=== PATIENT | female | born 1930 | race Caucasian/White ===

== ENCOUNTER 2016-10-25 11:24 | Inpatient (IN) | payer MEDICARE, MEDICAID ==
[~2016-10-25] VITALS: Ht 165.1 cm; Wt 82.0 kg
[~2016-10-25 11:24] MED LIST: APIX2.5T PEG; Atorvastatin Calcium PO; DON5T GT; FURO40TA GT; GABA-494 GT; GLYC1SOL GT; LOR05T GT; MET50T PEG; NOR7.5T GT; OMEP20CA5 PO; ONDA4TAB5 PO; POTA10SO11 GT
[2016-10-25 12:15] VITALS: BP 115/42
[2016-10-25] MEDS ORDERED: SODIUM CHLORIDE 0.9% 1,000 ML IV ONE (13:23)
[2016-10-25 14:36] LABS: Basophils # (auto) 0.1 uL; Basophils % (auto) 0.5 % (0.0-2.0); DEFINITIVE VIEW TRANSMISSION; Eosinophils # (auto) 0 uL; Hematocrit 38.6 % (36.0-46.0); Hemoglobin 12.3 g/dL (12.2-16.2); Lymphocytes # (auto) 0.3 uL; Lymphocytes % (auto) 1.6 % (10.0-50.0); Mean Corpuscular Hemoglobin 26.8 pg (28.0-32.0); Mean Corpuscular Hgb Conc. 31.8 g/dL (32.0-36.0); Mean Corpuscular Volume 84.3 fL (80.0-100.0); Mean Platelet Volume 10.9 fL (7.4-10.4); Monocytes # (auto) 1.1 uL; Monocytes % (auto) 6.2 % (0.0-12.0); Neutrophils # (auto) 15.7 uL; Neutrophils % (auto) 91.7 % (37.0-80.0); Platelet Count (auto) 251 10^3/uL (140-450); Red Cell Distribution Width 17.2 % (11.6-16.0); SUSPECT VIEW TRANSMISSION; White Blood Cell 17.1 10^3/uL (4.4-10.8)
[2016-10-25 14:55] VITALS: BP 104/48
[2016-10-25 19:45] LABS: Urine Bilirubin Negative (Negative); Urine Blood Negative /uL (Negative); Urine Color Yellow (Yellow); Urine Glucose Normal (Normal); Urine Ketone Negative (Negative); Urine Mucus FEW (None Seen); Urine Nitrite Negative (Negative); Urine RBC 2 /hpf (0 - 4); Urine Squamous Epithelial Cell FEW /hpf (<5); Urine WBC Clumps PRESENT /hpf (None Seen)
[2016-10-25 20:00] VITALS: BP 86/54
[2016-10-25 22:00] VITALS: BP 107/66
[2016-10-25] MEDS ORDERED: ONDANSETRON HCL 4 MG/2 ML VIAL IV PRN (22:15)
[2016-10-25] MEDS ORDERED: LEVOFLOXACIN 750MG 150 ML IV ONE (22:15)
[2016-10-25] MEDS ORDERED: MORPHINE SULF INJ 2 MG/ML SYRINGE 1ML IV PRN (22:15)
[2016-10-25] MEDS ORDERED: PPN PER PHARMACY 0 ML IV SCH (22:15)
[2016-10-25] MEDS ORDERED: ACETAMINOPHEN 325 MG TAB PO PRN (22:15)
[2016-10-25] MEDS ORDERED: NITROGLYCERIN 0.4 MG SL TAB SL PRN (22:15)
[2016-10-25 23:21] LABS: Potassium 5.3 mmol/L (3.5-5.1)
[2016-10-25 23:22] LABS: BUN/Creatinine Ratio 34.9; Bilirubin, Total 0.5 mg/dL (0.2-1.0); Calcium 8.5 mg/dL (8.5-10.1)
[2016-10-25 23:25] LABS: Albumin 2.1 g/dL (3.4-5.0); Magnesium 2.6 mg/dL (1.6-2.6); Total Protein 6.7 g/dL (6.4-8.2)
[2016-10-26] VITALS (10 sets, daily range): BP systolic 98–149; BP diastolic 42–88
[2016-10-26 06:12] LABS: Basophils # (auto) 0.1 uL; Basophils % (auto) 0.7 % (0.0-2.0); DEFINITIVE VIEW TRANSMISSION; Eosinophils # (auto) 0 uL; Eosinophils % (auto) 0.2 % (0.0-7.0); Hematocrit 35.7 % (36.0-46.0); Hemoglobin 11.3 g/dL (12.2-16.2); Lymphocytes # (auto) 0.6 uL; Mean Corpuscular Hemoglobin 26.7 pg (28.0-32.0); Mean Corpuscular Hgb Conc. 31.6 g/dL (32.0-36.0); Mean Corpuscular Volume 84.6 fL (80.0-100.0); Mean Platelet Volume 9.6 fL (7.4-10.4); Monocytes # (auto) 1.6 uL; Monocytes % (auto) 10.3 % (0.0-12.0); Neutrophils # (auto) 13.1 uL; Neutrophils % (auto) 84.8 % (37.0-80.0); Platelet Count (auto) 229 10^3/uL (140-450); White Blood Cell 15.5 10^3/uL (4.4-10.8)
[2016-10-26 06:34] LABS: Albumin 2.1 g/dL (3.4-5.0); BUN/Creatinine Ratio 39.8; Calcium 8.5 mg/dL (8.5-10.1); Potassium 4.8 mmol/L (3.5-5.1)
[2016-10-26 06:36] LABS: Bilirubin, Total 0.7 mg/dL (0.2-1.0); Total Protein 6.7 g/dL (6.4-8.2)
[2016-10-26] MEDS ORDERED: METOPROLOL TARTRATE 1MG/1ML-5ML VIAL IV ONE (07:15)
[2016-10-26 07:22] LABS: Phosphorus 2.2 mg/dL (2.5-4.90)
[2016-10-26 07:25] LABS: Magnesium 2.6 mg/dL (1.6-2.6)
[2016-10-26] MEDS ORDERED: ENOXAPARIN SOD 40 MG/0.4 ML SYRINGE SC SCH (10:00)
[2016-10-26] MEDS ORDERED: POTASSIUM CHL 20 Meq TABLET PO SCH (10:00)
[2016-10-26] MEDS ORDERED: APIXABAN 2.5 MG TAB GT SCH (10:00)
[2016-10-26] MEDS ORDERED: FUROSEMIDE 40 MG TAB PO SCH (10:00)
[2016-10-26] MEDS ORDERED: SODIUM CHLORIDE 0.9% 500 ML IV ONE (10:45)
[2016-10-26] MEDS ORDERED: AMIODARONE HCL 150 MG in D5W 5% 100 ML IV ONE (10:45)
[2016-10-26] MEDS ORDERED: VANCOMYCIN PER PHARMACY 0 MG IV SCH (10:45)
[2016-10-26] MEDS ORDERED: AMIODARONE HCL 900 MG in DEXTROSE 500 ML IV SCH (10:52)
[2016-10-26] MEDS: PANTOPRAZOLE SODIUM 40 MG/10 ML VIAL IV SCH (10:57)
[2016-10-26] MEDS: METOPROLOL TARTRATE 50 MG TAB PO SCH ×2 (11:09→22:32)
[2016-10-26] MEDS: APIXABAN 5 MG TAB GT SCH ×2 (11:09→22:30)
[2016-10-26] MEDS ORDERED: LORazepam 2MG/ML-1ML VIAL ONE (11:17)
[2016-10-26] MEDS ORDERED: LORazepam 2MG/ML-1ML VIAL IM ONE ×2 (11:25→11:30)
[2016-10-26] MEDS ORDERED: LIDOCAINE 1% HCL (LOCAL ANESTH.) INJ 20ML MDV ONE (11:40)
[2016-10-26] MEDS ORDERED: VANCOMYCIN 1,250 MG in D5W 5% 250 ML IV SCH (12:00)
[2016-10-26 12:43] LABS: Partial Thromboplastin Time 24.6 sec (22.64-33.71)
[2016-10-26 12:47] LABS: INR 1.78 (0.9-1.15); Prothrombin Time 19.2 sec (9.37-12.3)
[2016-10-26] MEDS: FREE WATER GT SCH ×3 (14:00→22:00)
[2016-10-26] MEDS: SODIUM CHLORIDE 0.9% 1,000 ML IV SCH ×2 (14:00→20:17)
[2016-10-26] MEDS: AMIODARONE HCL 900 MG in DEXTROSE 500 ML IV SCH (16:52)
[2016-10-26] MEDS: IPRATROPIUM BROM 0.5 MG/2.5ML INH SOL NEB SCH ×2 (18:29→22:45)
[2016-10-26] MEDS: ALBUTEROL SULF 2.5 MG/0.5ML(0.5%) NEB SOLN NEB SCH ×2 (18:30→22:45)
[2016-10-26] MEDS ORDERED: POLY33504 GT (18:56)
[2016-10-26] MEDS ORDERED: SIME40DR15 PO (18:59)
[2016-10-26] MEDS: DONEPEZIL HYDROCHLORIDE 5 MG TAB PO SCH (22:30)
[2016-10-26] MEDS: ATORVASTATIN 20 MG TAB PO SCH (22:30)
[2016-10-26] MEDS: HYDROcodone-ACET 5/325MG TAB PO PRN (22:32)
[2016-10-26] MEDS: LEVOFLOXACIN 500MG 100 ML IV SCH (22:33)
[2016-10-27] VITALS (13 sets, daily range): BP systolic 83–150; BP diastolic 16–107
[2016-10-27] MEDS: FREE WATER GT SCH ×6 (02:00→22:06)
[2016-10-27] MEDS: SODIUM CHLORIDE 0.9% 1,000 ML IV SCH ×3 (03:45→20:54)
[2016-10-27] MEDS: Nutren Pulmonary 1 Liter GT SCH (05:00)
[2016-10-27 05:01] LABS: Basophils # (auto) 0 uL; Basophils % (auto) 0.1 % (0.0-2.0); DEFINITIVE VIEW TRANSMISSION; Eosinophils # (auto) 0.1 uL; Eosinophils % (auto) 0.7 % (0.0-7.0); Hematocrit 32.2 % (36.0-46.0); Hemoglobin 10.1 g/dL (12.2-16.2); Lymphocytes % (auto) 7.9 % (10.0-50.0); Mean Corpuscular Hemoglobin 26.6 pg (28.0-32.0); Mean Corpuscular Hgb Conc. 31.4 g/dL (32.0-36.0); Mean Corpuscular Volume 84.9 fL (80.0-100.0); Mean Platelet Volume 9.3 fL (7.4-10.4); Monocytes # (auto) 1.6 uL; Monocytes % (auto) 12.5 % (0.0-12.0); Neutrophils # (auto) 9.9 uL; Neutrophils % (auto) 78.8 % (37.0-80.0); Platelet Count (auto) 222 10^3/uL (140-450); Red Cell Distribution Width 16.5 % (11.6-16.0); White Blood Cell 12.5 10^3/uL (4.4-10.8)
[2016-10-27 05:26] LABS: Albumin 1.8 g/dL (3.4-5.0); BUN/Creatinine Ratio 39.3; Bilirubin, Total 0.8 mg/dL (0.2-1.0); Potassium 3.8 mmol/L (3.5-5.1); Total Protein 6.1 g/dL (6.4-8.2)
[2016-10-27] MEDS: IPRATROPIUM BROM 0.5 MG/2.5ML INH SOL NEB SCH ×5 (06:18→22:11)
[2016-10-27] MEDS: ALBUTEROL SULF 2.5 MG/0.5ML(0.5%) NEB SOLN NEB SCH ×5 (06:19→22:11)
[2016-10-27] MEDS: METOPROLOL TARTRATE 50 MG TAB PO SCH ×2 (09:22→22:05)
[2016-10-27] MEDS: PANTOPRAZOLE SODIUM 40 MG/10 ML VIAL IV SCH (09:43)
[2016-10-27] MEDS: APIXABAN 5 MG TAB GT SCH ×2 (09:43→22:03)
[2016-10-27] MEDS: AMIODARONE HCL 900 MG in DEXTROSE 500 ML IV SCH (12:04)
[2016-10-27] MEDS: HYDROcodone-ACET 5/325MG TAB PO PRN (21:07)
[2016-10-27] MEDS ORDERED: LEVOFLOXACIN 750MG 150 ML IV SCH (22:00)
[2016-10-27] MEDS: DONEPEZIL HYDROCHLORIDE 5 MG TAB PO SCH (22:03)
[2016-10-27] MEDS: ATORVASTATIN 20 MG TAB PO SCH (22:03)
[2016-10-27] MEDS: LEVOFLOXACIN 500MG 100 ML IV SCH (23:00)
[2016-10-28] VITALS (7 sets, daily range): BP systolic 80–154; BP diastolic 50–99
[2016-10-28] MEDS: FREE WATER GT SCH ×5 (02:00→22:10)
[2016-10-28] MEDS: ALBUTEROL SULF 2.5 MG/0.5ML(0.5%) NEB SOLN NEB SCH ×6 (02:16→22:00)
[2016-10-28] MEDS: IPRATROPIUM BROM 0.5 MG/2.5ML INH SOL NEB SCH ×6 (02:16→22:00)
[2016-10-28] MEDS: SODIUM CHLORIDE 0.9% 1,000 ML IV SCH ×3 (03:45→21:19)
[2016-10-28] MEDS ORDERED: IPRATROPIUM BROM 0.5 MG/2.5ML INH SOL NEB ONE (09:09)
[2016-10-28] MEDS: METOPROLOL TARTRATE 50 MG TAB PO SCH ×2 (10:00→22:11)
[2016-10-28] MEDS: APIXABAN 5 MG TAB GT SCH ×2 (10:34→22:02)
[2016-10-28] MEDS: PANTOPRAZOLE SODIUM 40 MG/10 ML VIAL IV SCH (10:34)
[2016-10-28] MEDS ORDERED: SODIUM CHLORIDE 0.9% 500 ML IV ONE (10:45)
[2016-10-28] MEDS ORDERED: AMIODARONE HCL 200 MG TAB PEG ONE (10:45)
[2016-10-28] MEDS ORDERED: LACTULOSE 20Gm/30ML SOLN PEG ONE (10:45)
[2016-10-28] MEDS: ALBUMIN 25% 100 ML IV SCH ×2 (11:00→12:00)
[2016-10-28] MEDS ORDERED: cefTAZidime 1 GM in D5W 5% 50 ML IV SCH (22:00)
[2016-10-28] MEDS: AMIODARONE HCL 200 MG TAB PEG SCH (22:09)
[2016-10-28] MEDS: DONEPEZIL HYDROCHLORIDE 5 MG TAB PO SCH (22:09)
[2016-10-28] MEDS: ATORVASTATIN 20 MG TAB PO SCH (22:11)
[2016-10-28] MEDS: MEROPENEM 1GM IVPB 100 ML IV SCH (23:10)
[2016-10-29] VITALS: BP 118/81
[2016-10-29] MEDS: ALBUTEROL SULF 2.5 MG/0.5ML(0.5%) NEB SOLN NEB SCH ×6 (02:28→22:13)
[2016-10-29] MEDS: IPRATROPIUM BROM 0.5 MG/2.5ML INH SOL NEB SCH ×6 (02:28→22:13)
[2016-10-29 04:00] VITALS: BP 101/50
[2016-10-29 04:15] VITALS: BP 101/50
[2016-10-29] MEDS: FREE WATER GT SCH ×4 (04:42→22:00)
[2016-10-29 05:24] LABS: Basophils # (auto) 0 uL; Basophils % (auto) 0.3 % (0.0-2.0); DEFINITIVE VIEW TRANSMISSION; Eosinophils # (auto) 0.1 uL; Eosinophils % (auto) 0.6 % (0.0-7.0); Hematocrit 32.5 % (36.0-46.0); Hemoglobin 10.2 g/dL (12.2-16.2); Lymphocytes # (auto) 0.8 uL; Lymphocytes % (auto) 6.2 % (10.0-50.0); Mean Corpuscular Hemoglobin 26.4 pg (28.0-32.0); Mean Corpuscular Hgb Conc. 31.5 g/dL (32.0-36.0); Mean Corpuscular Volume 83.8 fL (80.0-100.0); Mean Platelet Volume 9.5 fL (7.4-10.4); Monocytes # (auto) 1.2 uL; Monocytes % (auto) 9.3 % (0.0-12.0); Neutrophils # (auto) 11.2 uL; Neutrophils % (auto) 83.6 % (37.0-80.0); Platelet Count (auto) 254 10^3/uL (140-450); Red Cell Distribution Width 17.3 % (11.6-16.0); White Blood Cell 13.4 10^3/uL (4.4-10.8)
[2016-10-29 05:43] LABS: BUN/Creatinine Ratio 32.8; Calcium 7.5 mg/dL (8.5-10.1); Potassium 3.7 mmol/L (3.5-5.1)
[2016-10-29] MEDS: SODIUM CHLORIDE 0.9% 1,000 ML IV SCH (06:14)
[2016-10-29 08:00] VITALS: BP 100/56
[2016-10-29] MEDS: MEROPENEM 1GM IVPB 100 ML IV SCH (09:51)
[2016-10-29] MEDS: APIXABAN 5 MG TAB GT SCH ×2 (09:51→22:38)
[2016-10-29] MEDS: PANTOPRAZOLE SODIUM 40 MG/10 ML VIAL IV SCH (09:51)
[2016-10-29] MEDS: AMIODARONE HCL 200 MG TAB PEG SCH ×2 (09:52→22:37)
[2016-10-29 12:00] VITALS: BP 147/85
[2016-10-29] MEDS ORDERED: LACTULOSE 20Gm/30ML SOLN PEG PRN (12:45)
[2016-10-29 13:25] LABS: Partial Thromboplastin Time 29.7 sec (22.64-33.71)
[2016-10-29 13:56] LABS: INR 1.22 (0.9-1.15); Prothrombin Time 13.2 sec (9.37-12.3)
[2016-10-29 16:00] VITALS: BP 136/85
[2016-10-29] MEDS: cefTAZidime 1 GM in D5W 5% 50 ML IV SCH (22:00)
[2016-10-29] MEDS: METOPROLOL TARTRATE 25 MG TAB PO SCH (22:00)
[2016-10-29] MEDS: ATORVASTATIN 20 MG TAB PO SCH (22:37)
[2016-10-29] MEDS: DONEPEZIL HYDROCHLORIDE 5 MG TAB PO SCH (22:38)
[2016-10-30] VITALS: BP 165/85
[2016-10-30] MEDS: HYDROcodone-ACET 5/325MG TAB PO PRN (01:26)
[2016-10-30] MEDS: IPRATROPIUM BROM 0.5 MG/2.5ML INH SOL NEB SCH ×6 (02:18→22:38)
[2016-10-30] MEDS: ALBUTEROL SULF 2.5 MG/0.5ML(0.5%) NEB SOLN NEB SCH ×6 (02:18→22:38)
[2016-10-30 04:00] VITALS: BP 130/77
[2016-10-30] MEDS: FREE WATER GT SCH ×4 (04:00→21:55)
[2016-10-30 05:10] LABS: Basophils # (auto) 0 uL; Basophils % (auto) 0.3 % (0.0-2.0); DEFINITIVE VIEW TRANSMISSION; Eosinophils # (auto) 0.3 uL; Eosinophils % (auto) 1.7 % (0.0-7.0); Hematocrit 32.8 % (36.0-46.0); Hemoglobin 10.4 g/dL (12.2-16.2); Lymphocytes # (auto) 0.8 uL; Mean Corpuscular Hemoglobin 26.6 pg (28.0-32.0); Mean Corpuscular Hgb Conc. 31.6 g/dL (32.0-36.0); Mean Corpuscular Volume 84.1 fL (80.0-100.0); Mean Platelet Volume 9.1 fL (7.4-10.4); Monocytes # (auto) 1.2 uL; Monocytes % (auto) 7.4 % (0.0-12.0); Neutrophils # (auto) 13.9 uL; Neutrophils % (auto) 85.6 % (37.0-80.0); Platelet Count (auto) 262 10^3/uL (140-450); Red Cell Distribution Width 17.3 % (11.6-16.0); White Blood Cell 16.3 10^3/uL (4.4-10.8)
[2016-10-30 05:18] LABS: Calcium 7.8 mg/dL (8.5-10.1); Potassium 3.5 mmol/L (3.5-5.1)
[2016-10-30 08:03] VITALS: BP 133/80
[2016-10-30] MEDS: APIXABAN 5 MG TAB GT SCH ×2 (10:06→21:53)
[2016-10-30] MEDS: METOPROLOL TARTRATE 25 MG TAB PO SCH ×2 (10:07→21:54)
[2016-10-30] MEDS: PANTOPRAZOLE SODIUM 40 MG/10 ML VIAL IV SCH (10:07)
[2016-10-30] MEDS: AMIODARONE HCL 200 MG TAB PEG SCH ×2 (10:07→21:55)
[2016-10-30] MEDS: cefTAZidime 1 GM in D5W 5% 50 ML IV SCH ×2 (10:07→21:53)
[2016-10-30] MEDS: MEMANTINE HCL 5 MG TAB PO SCH (10:07)
[2016-10-30] MEDS ORDERED: APIX5TAB GT (11:20)
[2016-10-30 12:00] VITALS: BP 142/88
[2016-10-30] MEDS ORDERED: GASTROGRAFIN 30 ML SOL ONE ×2 (15:53→16:17)
[2016-10-30 16:00] VITALS: BP 142/82
[2016-10-30] MEDS ORDERED: VANCOMYCIN PER PHARMACY 0 MG IV SCH (16:00)
[2016-10-30] MEDS: VANCOMYCIN 1GM/250ML D5W 250 ML IV SCH (17:07)
[2016-10-30 20:00] VITALS: BP 135/87
[2016-10-30] MEDS: DONEPEZIL HYDROCHLORIDE 5 MG TAB PO SCH (21:54)
[2016-10-30] MEDS: Nutren Pulmonary 1 Liter GT SCH (21:55)
[2016-10-30] MEDS: ATORVASTATIN 20 MG TAB PO SCH (21:55)
[2016-10-31] MEDS: HYDROcodone-ACET 5/325MG TAB PO PRN ×2 (00:34→21:53)
[2016-10-31] MEDS: IPRATROPIUM BROM 0.5 MG/2.5ML INH SOL NEB SCH ×6 (02:03→22:28)
[2016-10-31] MEDS: ALBUTEROL SULF 2.5 MG/0.5ML(0.5%) NEB SOLN NEB SCH ×6 (02:03→22:28)
[2016-10-31] MEDS: FREE WATER GT SCH ×4 (04:05→21:54)
[2016-10-31] MEDS: VANCOMYCIN 1GM/250ML D5W 250 ML IV SCH ×2 (04:38→16:47)
[2016-10-31 05:00] VITALS: BP 123/78
[2016-10-31 08:00] VITALS: BP 138/78
[2016-10-31 08:32] LABS: BUN/Creatinine Ratio 27.4; Calcium 8.1 mg/dL (8.5-10.1); Potassium 3.6 mmol/L (3.5-5.1)
[2016-10-31] MEDS: APIXABAN 5 MG TAB GT SCH ×2 (09:37→21:53)
[2016-10-31] MEDS: METOPROLOL TARTRATE 25 MG TAB PO SCH ×2 (09:47→13:12)
[2016-10-31] MEDS: PANTOPRAZOLE SODIUM 40 MG/10 ML VIAL IV SCH (13:08)
[2016-10-31] MEDS: AMIODARONE HCL 200 MG TAB PEG SCH ×2 (13:09→21:53)
[2016-10-31] MEDS: MEMANTINE HCL 5 MG TAB PO SCH (13:09)
[2016-10-31] MEDS: cefTAZidime 1 GM in D5W 5% 50 ML IV SCH ×2 (13:12→21:54)
[2016-10-31 15:24] LABS: Basophils # (auto) 0 uL; Basophils % (auto) 0.3 % (0.0-2.0); DEFINITIVE VIEW TRANSMISSION; Eosinophils # (auto) 0.3 uL; Hematocrit 36.1 % (36.0-46.0); Hemoglobin 11.3 g/dL (12.2-16.2); Mean Corpuscular Hemoglobin 26.5 pg (28.0-32.0); Mean Corpuscular Hgb Conc. 31.3 g/dL (32.0-36.0); Mean Corpuscular Volume 84.7 fL (80.0-100.0); Mean Platelet Volume 8.8 fL (7.4-10.4); Monocytes # (auto) 1.1 uL; Monocytes % (auto) 8.6 % (0.0-12.0); Neutrophils # (auto) 10.6 uL; Neutrophils % (auto) 81.1 % (37.0-80.0); Platelet Count (auto) 273 10^3/uL (140-450); Red Cell Distribution Width 17.4 % (11.6-16.0)
[2016-10-31 16:45] VITALS: BP 134/88
[2016-10-31 18:17] VITALS: BP 138/78
[2016-10-31] MEDS: ATORVASTATIN 20 MG TAB PO SCH (21:53)
[2016-10-31] MEDS: DONEPEZIL HYDROCHLORIDE 5 MG TAB PO SCH (21:53)
[2016-10-31 22:00] VITALS: BP 145/85
[2016-11-01] MEDS: ALBUTEROL SULF 2.5 MG/0.5ML(0.5%) NEB SOLN NEB SCH ×6 (02:14→22:08)
[2016-11-01] MEDS: IPRATROPIUM BROM 0.5 MG/2.5ML INH SOL NEB SCH ×6 (02:14→22:07)
[2016-11-01] MEDS: FREE WATER GT SCH ×4 (03:50→21:43)
[2016-11-01] MEDS: HYDROcodone-ACET 5/325MG TAB PO PRN ×4 (03:51→21:41)
[2016-11-01 05:00] VITALS: BP 156/88
[2016-11-01] MEDS: VANCOMYCIN 1GM/250ML D5W 250 ML IV SCH (05:45)
[2016-11-01] MEDS: Nutren Pulmonary 1 Liter GT SCH (05:57)
[2016-11-01 07:34] VITALS: BP 129/71
[2016-11-01 07:47] LABS: BUN/Creatinine Ratio 19.4; Calcium 8.3 mg/dL (8.5-10.1); Potassium 3.5 mmol/L (3.5-5.1)
[2016-11-01 07:50] LABS: Bilirubin, Total 0.5 mg/dL (0.2-1.0); Total Protein 5.8 g/dL (6.4-8.2)
[2016-11-01] MEDS: PANTOPRAZOLE SODIUM 40 MG/10 ML VIAL IV SCH (09:26)
[2016-11-01] MEDS: AMIODARONE HCL 200 MG TAB PEG SCH (09:27)
[2016-11-01] MEDS: MEMANTINE HCL 5 MG TAB PO SCH (09:28)
[2016-11-01] MEDS: METOPROLOL TARTRATE 25 MG TAB PO SCH ×2 (09:28→21:42)
[2016-11-01] MEDS: APIXABAN 5 MG TAB GT SCH ×2 (09:28→21:42)
[2016-11-01] MEDS: cefTAZidime 1 GM in D5W 5% 50 ML IV SCH ×2 (09:39→21:43)
[2016-11-01 12:14] VITALS: BP 129/74
[2016-11-01 16:14] VITALS: BP 113/68
[2016-11-01 20:00] VITALS: BP 135/72
[2016-11-01] MEDS: ATORVASTATIN 20 MG TAB PO SCH (21:41)
[2016-11-01] MEDS: DONEPEZIL HYDROCHLORIDE 5 MG TAB PO SCH (21:42)
[2016-11-01 22:00] VITALS: BP 135/72
[2016-11-02] VITALS (7 sets, daily range): BP systolic 107–134; BP diastolic 63–78
[2016-11-02] MEDS: IPRATROPIUM BROM 0.5 MG/2.5ML INH SOL NEB SCH ×6 (02:18→22:26)
[2016-11-02] MEDS: ALBUTEROL SULF 2.5 MG/0.5ML(0.5%) NEB SOLN NEB SCH ×6 (02:18→22:25)
[2016-11-02] MEDS: FREE WATER GT SCH ×4 (03:35→22:00)
[2016-11-02] MEDS: HYDROcodone-ACET 5/325MG TAB PO PRN ×2 (03:36→09:50)
[2016-11-02 06:39] LABS: Basophils # (auto) 0 uL; Basophils % (auto) 0.1 % (0.0-2.0); DEFINITIVE VIEW TRANSMISSION; Eosinophils # (auto) 0.3 uL; Eosinophils % (auto) 2.5 % (0.0-7.0); Hematocrit 27.8 % (36.0-46.0); Hemoglobin 10.6 g/dL (12.2-16.2); Lymphocytes # (auto) 1.5 uL; Lymphocytes % (auto) 12.6 % (10.0-50.0); Mean Corpuscular Hemoglobin 31.8 pg (28.0-32.0); Mean Corpuscular Volume 83.2 fL (80.0-100.0); Mean Platelet Volume 9.4 fL (7.4-10.4); Monocytes # (auto) 1.2 uL; Monocytes % (auto) 9.7 % (0.0-12.0); Neutrophils # (auto) 9.2 uL; Neutrophils % (auto) 75.1 % (37.0-80.0); Platelet Count (auto) 252 10^3/uL (140-450); Red Cell Distribution Width 17.4 % (11.6-16.0); SUSPECT VIEW TRANSMISSION; White Blood Cell 12.3 10^3/uL (4.4-10.8)
[2016-11-02 06:42] LABS: BUN/Creatinine Ratio 19.7; Calcium 8.1 mg/dL (8.5-10.1); Potassium 3.8 mmol/L (3.5-5.1)
[2016-11-02 06:48] LABS: Mean Corpuscular Hgb Conc. 38.2 g/dL (32.0-36.0)
[2016-11-02] MEDS: APIXABAN 5 MG TAB GT SCH ×2 (09:50→22:00)
[2016-11-02] MEDS: MEMANTINE HCL 5 MG TAB PO SCH (09:51)
[2016-11-02] MEDS: METOPROLOL TARTRATE 25 MG TAB PO SCH ×2 (09:51→22:00)
[2016-11-02] MEDS: PANTOPRAZOLE SODIUM 40 MG/10 ML VIAL IV SCH (09:53)
[2016-11-02] MEDS ORDERED: AMIODARONE HCL 200 MG TAB PEG SCH (10:00)
[2016-11-02] MEDS: cefTAZidime 1 GM in D5W 5% 50 ML IV SCH (11:38)
[2016-11-02] MEDS ORDERED: MORPHINE SULF INJ 2 MG/ML SYRINGE 1ML IV PRN (12:15)
[2016-11-02] MEDS ORDERED: HYDROmorphone HCL 2 MG/ML VL ONE (14:10)
[2016-11-02] MEDS ORDERED: HYDROmorphone HCL 2 MG/ML VL IV ONE (14:15)
[2016-11-02] MEDS ORDERED: GASTROGRAFIN 120 ML SOL ONE (15:10)
[2016-11-02] MEDS: MEROPENEM 1GM IVPB 100 ML IV SCH ×2 (16:59→22:18)
[2016-11-02] MEDS ORDERED: MEROPENEM 1GM IVPB 100 ML IV SCH (22:00)
[2016-11-02] MEDS: DONEPEZIL HYDROCHLORIDE 5 MG TAB PO SCH (22:00)
[2016-11-02] MEDS: ATORVASTATIN 20 MG TAB PO SCH (22:00)
[2016-11-02] MEDS ORDERED: MORPHINE SULF INJ 2 MG/ML SYRINGE 1ML IV ONE (22:45)
[2016-11-03] VITALS (7 sets, daily range): BP systolic 81–174; BP diastolic 47–92
[2016-11-03] MEDS: IPRATROPIUM BROM 0.5 MG/2.5ML INH SOL NEB SCH ×6 (02:12→22:05)
[2016-11-03] MEDS: ALBUTEROL SULF 2.5 MG/0.5ML(0.5%) NEB SOLN NEB SCH ×6 (02:12→22:06)
[2016-11-03] MEDS: FREE WATER GT SCH ×4 (04:00→21:37)
[2016-11-03] MEDS: MEROPENEM 1GM IVPB 100 ML IV SCH ×3 (05:55→21:37)
[2016-11-03] MEDS ORDERED: MORPHINE SULF INJ 2 MG/ML SYRINGE 1ML IV ONE (08:15)
[2016-11-03] MEDS: HYDROcodone-ACET 5/325MG TAB PO PRN ×4 (11:35→17:57)
[2016-11-03] MEDS: APIXABAN 5 MG TAB GT SCH ×2 (11:36→21:37)
[2016-11-03] MEDS: METOPROLOL TARTRATE 25 MG TAB PO SCH ×2 (11:37→22:21)
[2016-11-03] MEDS: PANTOPRAZOLE SODIUM 40 MG/10 ML VIAL IV SCH (11:39)
[2016-11-03] MEDS: MEMANTINE HCL 5 MG TAB PO SCH (11:39)
[2016-11-03] MEDS: DONEPEZIL HYDROCHLORIDE 5 MG TAB PO SCH (21:38)
[2016-11-03] MEDS: ATORVASTATIN 20 MG TAB PO SCH (21:38)
[2016-11-03] MEDS: Nutren Pulmonary 1 Liter GT SCH (22:00)
[2016-11-04] MEDS: IPRATROPIUM BROM 0.5 MG/2.5ML INH SOL NEB SCH ×6 (02:16→22:22)
[2016-11-04] MEDS: ALBUTEROL SULF 2.5 MG/0.5ML(0.5%) NEB SOLN NEB SCH ×6 (02:16→22:22)
[2016-11-04] MEDS: FREE WATER GT SCH ×4 (04:18→22:47)
[2016-11-04] MEDS: MEROPENEM 1GM IVPB 100 ML IV SCH ×3 (05:30→22:59)
[2016-11-04 05:31] VITALS: BP 132/80
[2016-11-04] MEDS ORDERED: LEVOFLOXACIN 250 MG TAB PEG ONE (09:45)
[2016-11-04] MEDS: PANTOPRAZOLE SODIUM 40 MG/10 ML VIAL IV SCH (10:00)
[2016-11-04] MEDS: MORPHINE SULF INJ 2 MG/ML SYRINGE 1ML IV PRN ×2 (10:00→16:18)
[2016-11-04] MEDS: METOPROLOL TARTRATE 25 MG TAB PO SCH (10:01)
[2016-11-04] MEDS: APIXABAN 5 MG TAB GT SCH ×2 (10:01→22:37)
[2016-11-04] MEDS: MEMANTINE HCL 5 MG TAB PO SCH (10:01)
[2016-11-04 10:59] VITALS: BP 131/53
[2016-11-04] MEDS: HYDROcodone-ACET 5/325MG TAB PO PRN ×2 (14:18→23:05)
[2016-11-04] MEDS ORDERED: LEVO750T64 PO (14:27)
[2016-11-04 17:00] VITALS: BP 145/76
[2016-11-04 22:04] VITALS: BP 150/102
[2016-11-04] MEDS: ATORVASTATIN 20 MG TAB PO SCH (22:37)
[2016-11-04] MEDS: DONEPEZIL HYDROCHLORIDE 5 MG TAB PO SCH (22:38)
[2016-11-04] MEDS: METOPROLOL TARTRATE 50 MG TAB PO SCH (22:39)
[2016-11-05] MEDS: MORPHINE SULF INJ 2 MG/ML SYRINGE 1ML IV PRN ×2 (04:48→09:35)
[2016-11-05] MEDS: FREE WATER GT SCH ×2 (04:49→09:47)
[2016-11-05 04:58] VITALS: BP 154/97
[2016-11-05] MEDS: MEROPENEM 1GM IVPB 100 ML IV SCH (05:57)
[2016-11-05] MEDS: ALBUTEROL SULF 2.5 MG/0.5ML(0.5%) NEB SOLN NEB SCH ×2 (05:57→10:11)
[2016-11-05] MEDS: IPRATROPIUM BROM 0.5 MG/2.5ML INH SOL NEB SCH ×2 (05:57→10:11)
[2016-11-05 08:00] VITALS: BP 134/77
[2016-11-05 08:44] VITALS: BP 134/77
[2016-11-05] MEDS: PANTOPRAZOLE SODIUM 40 MG/10 ML VIAL IV SCH (09:36)
[2016-11-05] MEDS: METOPROLOL TARTRATE 50 MG TAB PO SCH (09:36)
[2016-11-05] MEDS: APIXABAN 5 MG TAB GT SCH (09:36)
[2016-11-05] MEDS: MEMANTINE HCL 5 MG TAB PO SCH (09:37)
== END 2016-11-05 12:03 | disposition home health service (06) | DRG 870 ==
LOC: EDBD 11:24 → EDUNIT# 11:24 → ER 11:28 → DOU 11:29 → TELE 23:38 → DOU IN ICU 10-26 09:06 → TELE-EAST 10-30 23:40
PROVIDERS: ADMIT Nurse Practitioner; ATTEND Internal Medicine
PROC: 5A1955Z Respiratory Ventilation, Greater than 96 Consecutive Hours (ICD-10-PCS; principal; 2016-10-30)
PROC: 02H633Z Insertion of Infusion Device into Right Atrium, Percutaneous Approach (ICD-10-PCS; 2016-10-30)
PROC: 0BH17EZ Insertion of Endotracheal Airway into Trachea, Via Natural or Artificial Opening (ICD-10-PCS; 2016-10-30)
DX: A41.9 Sepsis, unspecified organism (principal); G93.41 Metabolic encephalopathy; R65.21 Severe sepsis with septic shock; J15.20 Pneumonia due to staphylococcus, unspecified; E43 Unspecified severe protein-calorie malnutrition; J96.20 Acute and chronic respiratory failure, unspecified whether with hypoxia or hypercapnia; N39.0 Urinary tract infection, site not specified; N17.9 Acute kidney failure, unspecified; J44.0 Chronic obstructive pulmonary disease with (acute) lower respiratory infection; J96.12 Chronic respiratory failure with hypercapnia; Z99.11 Dependence on respirator [ventilator] status; I10 Essential (primary) hypertension; E11.9 Type 2 diabetes mellitus without complications; R26.9 Unspecified abnormalities of gait and mobility; F02.80 Dementia in other diseases classified elsewhere, unspecified severity, without behavioral disturbance, psychotic disturbance, mood disturbance, and anxiety; G30.1 Alzheimer's disease with late onset; F01.50 Vascular dementia, unspecified severity, without behavioral disturbance, psychotic disturbance, mood disturbance, and anxiety; I48.2 Chronic atrial fibrillation; E86.0 Dehydration; E87.5 Hyperkalemia; J44.9 Chronic obstructive pulmonary disease, unspecified; Z88.0 Allergy status to penicillin; Z88.8 Allergy status to other drugs, medicaments and biological substances; Z82.5 Family history of asthma and other chronic lower respiratory diseases; Z93.0 Tracheostomy status; Z68.30 Body mass index [BMI] 30.0-30.9, adult; Z83.3 Family history of diabetes mellitus; Z87.891 Personal history of nicotine dependence
CPT/HCPCS: 36415; 36600; 51702; 70450; 71010; 74000; 74020; 80048; 80053; 80202; 81001; 82270; 82746; 82805; 82962; 83605; 83735; 84100; 84478; 85025; 85610; 85730; 87040; 87070; 87077; 87081; 87086; 87186; 87205; 93005; 94002; 94003; 94640; 94761; 95819; 96374; 96375; C9113; J1956; J2001; J2185; J7060

== ENCOUNTER 2016-11-06 00:53 | Emergency (ER) | payer MEDICARE, MEDICAID ==
[~2016-11-06] VITALS: Ht 152.4 cm; Wt 72.6 kg
[~2016-11-06 00:53] MED LIST changes: -APIX2.5T PEG; +APIX5TAB GT; +LEVO750T64 PO; +POLY33504 GT; +SIME40DR15 PO
[2016-11-06] MEDS ORDERED: SODIUM CHLORIDE 0.9% 1,000 ML IVB ONE (01:01)
[2016-11-06 01:27] LABS: Basophils # (auto) 0.1 uL; Basophils % (auto) 0.5 % (0.0-2.0); DEFINITIVE VIEW TRANSMISSION; Eosinophils # (auto) 0.2 uL; Eosinophils % (auto) 2.2 % (0.0-7.0); Hematocrit 41.5 % (36.0-46.0); Hemoglobin 12.6 g/dL (12.2-16.2); Lymphocytes # (auto) 1.6 uL; Lymphocytes % (auto) 14.1 % (10.0-50.0); Mean Corpuscular Hemoglobin 26.3 pg (28.0-32.0); Mean Corpuscular Hgb Conc. 30.3 g/dL (32.0-36.0); Mean Corpuscular Volume 86.9 fL (80.0-100.0); Monocytes % (auto) 9.5 % (0.0-12.0); Neutrophils # (auto) 8.1 uL; Neutrophils % (auto) 73.7 % (37.0-80.0); Platelet Count (auto) 176 10^3/uL (140-450); Red Cell Distribution Width 18.7 % (11.6-16.0)
[2016-11-06 01:30] LABS: Partial Thromboplastin Time 28.5 sec (22.64-33.71)
[2016-11-06 01:31] LABS: INR 1.23 (0.9-1.15); Prothrombin Time 13.3 sec (9.37-12.3)
[2016-11-06 01:36] LABS: Albumin 2.4 g/dL (3.4-5.0); BUN/Creatinine Ratio 13.5; Calcium 8.2 mg/dL (8.5-10.1); Magnesium 2.2 mg/dL (1.6-2.6); Potassium 4.8 mmol/L (3.5-5.1)
[2016-11-06 01:43] LABS: Bilirubin, Total 0.6 mg/dL (0.2-1.0); Total Protein 6.6 g/dL (6.4-8.2)
[2016-11-06 02:34] VITALS: BP 120/87
[2016-11-06] MEDS ORDERED: EPINEPHrine HCL 1 MG/10 ML SYRG IV ONE (11:01)
== END 2016-11-06 04:59 | disposition expired ==
LOC: EDUNIT# 00:53 → ER 00:53
DX: R57.0 Cardiogenic shock (principal); J44.9 Chronic obstructive pulmonary disease, unspecified; I48.91 Unspecified atrial fibrillation; I10 Essential (primary) hypertension; E78.5 Hyperlipidemia, unspecified; Z88.0 Allergy status to penicillin; Z88.8 Allergy status to other drugs, medicaments and biological substances; R41.82 Altered mental status, unspecified
CPT/HCPCS: 36415; 36600; 80053; 82805; 83735; 84443; 84484; 85025; 85610; 85730; 86141; 92950; 93005; 94002; 96360; 96361; 99285; J0171